=== PATIENT | male | born 1940 ===

== ENCOUNTER 2018-10-31 14:28 | Inpatient (IN) | payer OTHER ==
[2018-10-31] MEDS ORDERED: Sodium Chloride 0.9% 1,000 ML IV STA (14:54)
--- NOTE | 2018-10-31 15:01 | ED PDOC ---
Arrival/HPI - General Chief Complaint: Fever Time Seen by Provider: 10/31/18 14:29 Historian: Patient - History of Present Illness Narrative History of Present Illness (Text): 10/31/18 15:00 78 yo mlae, hx of dm, presents wtih fever, chills, vomiting. as per son bedside, [place] to [place] was noted to be febrile. reports dry cough. no cp, no sob, no abd pain, no other complaints Past Medical History - Provider Review Nursing Documentation Reviewed: Yes - Infectious Disease Hx of Infectious Diseases: None - Cardiac Hx Cardiac Disorders: No - Pulmonary Hx Respiratory Disorders: No - Neurological Hx Dementia: Yes - HEENT Hx Blind: Yes (blind rt eye) - Renal Hx Renal Disorder: No - Endocrine/Metabolic Hx Diabetes Mellitus Type 2: Yes - Hematological/Oncological Hx Blood Disorders: No - Musculoskeletal/Rheumatological Hx Musculoskeletal Disorders: No - Gastrointestinal Hx Colitis: No - Genitourinary/Gynecological Hx Genitourinary Disorders: No - Psychiatric Hx Substance Use: No - Anesthesia Hx Anesthesia: No Family/Social History - Physician Review Nursing Documentation Reviewed: Yes Family/Social History: Unknown Family HX Smoking Status: Unknown If Ever Smoked Hx Alcohol Use: No Hx Substance Use: No Allergies/Home Meds Allergies/Adverse Reactions: Allergies No Known Allergies Allergy (Verified 10/31/18 14:44) Home Medications: Home Meds Medication Instructions Recorded Confirmed MetFORMIN [glucOPHAGE] 0 mg PO BID 10/31/18 10/31/18 Review of Systems - Review of Systems Constitutional: Normal Eyes: Normal ENT: Normal Respiratory: Cough Cardiovascular: Normal Gastrointestinal: Normal Genitourinary Male: Normal Musculoskeletal: Normal Skin: Normal Neurological: Normal Endocrine: Normal Hemo/Lymphatic: Normal Psychiatric: Normal Physical Exam Vital Signs Temp Pulse Resp BP Pulse Ox 10/31/18 14:37 102.6 F H 72 18 144/69 96 Temperature: Febrile Blood Pressure: Normal Pulse: Regular Respiratory Rate: Normal Appearance: Positive for: Well-Appearing, Non-Toxic, Comfortable Pain Distress: None Mental Status: Positive for: Alert and Oriented X 3 - Systems Exam Head: Present: Atraumatic, Normocephalic Pupils: Present: PERRL Extroacular Muscles: Present: EOMI Conjunctiva: Present: Normal Mouth: Present: Moist Mucous Membranes Neck: Present: Normal Range of Motion Respiratory/Chest: Present: Clear to Auscultation, Good Air Exchange. No: Respiratory Distress, Accessory Muscle Use Cardiovascular: Present: Regular Rate and Rhythm, Normal S1, S2. No: Murmurs Abdomen: No: Tenderness, Distention, Peritoneal Signs, Rebound, Guarding Back: Present: Normal Inspection Upper Extremity: Present: Normal Inspection. No: Cyanosis, Edema Lower Extremity: Present: Normal Inspection. No: Edema Neurological: Present: GCS=15, CN II-XII Intact, Speech Normal Skin: Present: Warm, Dry, Normal Color. No: Rashes Psychiatric: Present: Alert, Oriented x 3, Normal Insight, Normal Concentration Medical Decision Making ED Course and Treatment: ro pna influenza 10/31/2018 15:27 Chest X-Ray IMPRESSION: No active disease. Dictator: Igor Miller MD 10/31/18 18:14 influenza positive. pt states feels unwell for discharge. accepted dr ramirez. - RAD Interpretation Radiology Orders: 10/31/18 14:53 CHEST PORTABLE [RAD] Stat - Medication Orders Current Medication Orders: Sodium Chloride (Sodium Chloride 0.9%) 1,000 mls @ 999 mls/hr IV .Q1H1M STA Stop: 10/31/18 15:54 Discontinued Medications Acetaminophen (Tylenol 325mg Tab) 975 mg PO STAT STA Stop: 10/31/18 14:55 Ondansetron HCl (Zofran Inj) 4 mg IVP STAT STA Stop: 10/31/18 14:55 Disposition/Present on Arrival - Present on Arrival Any Indicators Present on Arrival: No History of DVT/PE: No History of Uncontrolled Diabetes: No Urinary Catheter: No History of Decub. Ulcer: No History Surgical Site Infection Following: None - Disposition Have Diagnosis and Disposition been Completed?: Yes Diagnosis: Influenza Disposition: HOSPITALIZED Disposition Time: 17:00 Patient Problems: Current Active Problems Problem Status Onset Influenza Acute Condition: STABLE
--- NOTE | 2018-10-31 15:31 | RAD ---
Date of service: 10/31/2018 HISTORY: fever COMPARISON: No prior. FINDINGS: LUNGS: No active pulmonary disease. PLEURA: No significant pleural effusion identified, no pneumothorax apparent. CARDIOVASCULAR: Aorta atherosclerotic calcifications. Cardiomediastinal silhouette enlarged. OSSEOUS STRUCTURES: Spinal degenerative changes. VISUALIZED UPPER ABDOMEN: Normal. OTHER FINDINGS: None. IMPRESSION: No active disease.
[2018-10-31 15:42] LABS: BASO # 0.03 K/mm3 (0.0-2.0); BASO % 0.3 % (0.0-3.0); EOS % 0.5 % (1.5-5.0); GRAN # 7.73 (1.4-6.5); GRAN % 87.7 % (50.0-68.0); HEMOGLOBIN 11.9 g/dL (14.0-18.0); LYMPH # 0.6 (1.2-3.4); LYMPH % 6.8 % (22.0-35.0); MEAN CELL VOLUME 95.7 fl (80.0-105.0); MEAN CORPUSCULAR HEMOGLOBIN 32.1 pg (25.0-35.0); MEAN CORPUSCULAR HGB CONC 33.5 g/dl (31.0-37.0); MEAN PLATELET VOLUME 9.9 fl (7.0-11.0); MONO # 0.4 (0.1-0.6); MONO % 4.7 % (1.0-6.0); RBC 3.71 10^6/uL (3.5-6.1); RED CELL DISTRIBUTION WIDTH 12.5 % (11.5-14.5); WHITE BLOOD COUNT 8.8 10^3/uL (4.5-11.0)
[2018-10-31 16:07] LABS: VENOUS BLOOD GAS BASE EXCESS 0.8 mmol/L (0.0-2.0); VENOUS BLOOD GAS PO2 33 mm/Hg (30-55); VENOUS BLOOD PH 7.35 (7.32-7.43)
[2018-10-31 16:15] LABS: URINE BILIRUBIN NEGATIVE (NEGATIVE); URINE BLOOD MODERATE (NEGATIVE); URINE GLUCOSE (UA) 100 mg/dL (NEGATIVE); URINE LEUKOCYTE ESTERASE NEGATIVE Leu/uL (NEGATIVE); URINE PROTEIN TRACE mg/dL (<30 mg/dL); URINE UROBILINOGEN 0.2 E.U./dL (<1 E.U./dL)
[2018-10-31 16:17] LABS: INR 1.23; PARTIAL THROMBOPLASTIN TIME 27.3 Seconds (25.1-36.5); PROTHROMBIN TIME 14.1 SECONDS (9.4-12.5)
[2018-10-31 16:18] LABS: URINE APPEARANCE CLEAR (CLEAR)
[2018-10-31 16:22] LABS: URINE RBC 20 - 25 /hpf (0-2)
[2018-10-31 16:36] LABS: ALB/GLOB RATIO 1.2 (1.1-1.8); ALBUMIN 4.1 g/dL (3.0-4.8); AST/SGOT 47 U/L (17-59); BLOOD UREA NITROGEN 13 mg/dL (7-21); CALCIUM 9.4 mg/dL (8.4-10.5); GFR NON-AFRICAN AMERICAN 58
[2018-10-31 16:37] LABS: ALT/SGPT 34 U/L (7-56); TROPONIN I < 0.01 ng/mL
[2018-10-31 22:33] VITALS: BMI 23.3
[2018-10-31] MEDS ORDERED: Pneumococcal 23-Valent Vaccine IM ONE (22:33)
[2018-10-31] MEDS ORDERED: Influenza Vaccine 60 mcg/0.5 mL SYR (4YR UP) IM ONE (22:33)
[2018-10-31] MEDS: Sodium Chloride 0.9% 1,000 ML IV SCH (22:43)
[2018-11-01 06:56] LABS: ALB/GLOB RATIO 1.1 (1.1-1.8); ALBUMIN 3.9 g/dL (3.0-4.8); ALT/SGPT 58 U/L (7-56); AST/SGOT 67 U/L (17-59); BLOOD UREA NITROGEN 16 mg/dL (7-21); CALCIUM 8.9 mg/dL (8.4-10.5); GFR NON-AFRICAN AMERICAN > 60
[2018-11-01 06:59] LABS: BASO # 0.02 K/mm3 (0.0-2.0); BASO % 0.2 % (0.0-3.0); EOS # 0.1 (0.0-0.7); EOS % 0.6 % (1.5-5.0); GRAN # 9.4 (1.4-6.5); GRAN % 87.1 % (50.0-68.0); HEMOGLOBIN 11.4 g/dL (14.0-18.0); LYMPH # 0.9 (1.2-3.4); LYMPH % 8.1 % (22.0-35.0); MEAN CELL VOLUME 96.1 fl (80.0-105.0); MEAN CORPUSCULAR HEMOGLOBIN 31.8 pg (25.0-35.0); MONO # 0.4 (0.1-0.6); RBC 3.59 10^6/uL (3.5-6.1); RED CELL DISTRIBUTION WIDTH 12.7 % (11.5-14.5); WHITE BLOOD COUNT 10.8 10^3/uL (4.5-11.0)
[2018-11-01] MEDS: Insulin Reg-LOW-Coverage SC SCH ×2 (09:06→16:37)
[2018-11-01] MEDS: Sodium Chloride 0.9% 1,000 ML IV SCH ×2 (09:07→18:05)
--- NOTE | 2018-11-01 14:42 | CON ---
DATE OF CONSULTATION: 11/01/2018 CHIEF COMPLAINT: Fever times several days. HISTORY OF PRESENT ILLNESS: This is an 78-year-old male with a history of diabetes mellitus and right eye blindness, who just returned from [place] where he had a fever upon entering the plane. The patient's in [place] has influenza. He is admitted with cough. No shortness of breath. No abdominal pain. No diarrhea or constipation. No bright red blood per rectum. No melena. No dysuria or frequency. PAST MEDICAL HISTORY: Significant for diabetes mellitus, right eye blindness, mild dementia and skin cancer. PAST SURGICAL HISTORY: Significant for skin cancer removal from his nose and a right arm surgery from a fracture, which has screws in it. The patient also had inguinal hernia repair, bilateral. SOCIAL HISTORY: Recent travel to [place]. His has influenza. MEDICATIONS AT HOME: Metformin. ALLERGIES: THE PATIENT HAS NO KNOWN ALLERGIES. PHYSICAL EXAMINATION: VITAL SIGNS: Temperature is 102.6; heart rate is 72, it was 66; respiratory rate of 18, was up to 20; blood pressure is 129/50. HEENT: Unremarkable. NECK: Supple. LUNGS: Decreased breath sounds. HEART: Normal S1, S2. ABDOMEN: Soft, nontender. LABORATORY EXAMINATION: White count of 8.8, hemoglobin of 11.9, platelets of 215,000. Coagulation is noted. Chemistries reveal a BUN of 13, creatinine of 1.2. Random glucose is 157. Urinalysis is noted, 2-5 wbc's. Influenza A is positive. Microbiology is pending. The patient had a chest x-ray, which is negative. Review of orders reveals the patient is on Tamiflu. Blood cultures are ordered. ASSESSMENT/PLAN: This is an 78-year-old male with diabetes and who has #1 is fever with influenza A. Treat with Tamiflu x5 days. Check on the culture results and we will make further recommendations. Sheng Verdugo MD
--- NOTE | 2018-11-01 19:59 | CARD ---
APPROVED REPORT Date of service: 10/31/2018 EKG Measurement Heart [id number] <Conclusion> Normal sinus rhythm Incomplete RBBB Borderline ECG
--- NOTE | 2018-11-01 22:18 | HP ---
DATE OF EXAM: 11/01/2018 HISTORY OF PRESENT ILLNESS: This is an 78-year-old male who is coming into the hospital complaining of fever, chills. He was having vomiting. The patient had come from [place] to visit because his brother had , the patient's has flu. He had complaints of a dry cough. He was found to have a positive flu in the ER and was admitted to the hospital for further evaluation. He denies any chest pain or shortness of breath. No abdominal pain or back pain. No dysuria or frequency. No nocturia. No weakness in the arms or the legs. ALLERGIES: HE HAS NO KNOWN DRUG ALLERGIES. HOME MEDICATIONS: Metformin. FAMILY HISTORY: His mother and father had MIs and that is how they passed. SOCIAL HISTORY He denies smoking, drinking alcohol. REVIEW OF SYSTEMS: All other review of symptoms are within normal limits except as mentioned. PHYSICAL EXAMINATION: VITAL SIGNS: T-max of 102.5, pulse of 72, blood pressure 129/59, respiration is 20, O2 saturation 95%. Height is 5 feet 7 inches, weight is 149 pounds. BMI is 23.3. GENERAL: The patient lying in bed, uncomfortable, and in no acute distress. HEENT: Atraumatic and normocephalic. Anicteric sclerae. Moist mucosa. [place] conjunctivae. No oral lesions. NECK: No JVD, anterior and posterior adenopathy, thyromegaly, or bruits. CARDIOVASCULAR: S1 and S2 regular. No murmur, rubs, or gallop. LUNGS: Clear to auscultation bilaterally. No wheezes, rales, or rhonchi. ABDOMEN: Bowel sounds are positive. Soft, nontender and nondistended. No hepatosplenomegaly. No rebound and no guarding EXTREMITIES: No cyanosis, clubbing, or edema. NEUROLOGIC: No facial asymmetry. Tongue is midline. No vulva deviation. Power is 5/5 upper extremity and lower extremity. Sensation intact in upper extremity and lower extremity. PSYCHIATRIC: He is awake, alert and oriented x3. No anxiety or depression. He has normal affect. GENITOURINARY: No CVA tenderness. VASCULAR: 2+ pulses in the carotid pulses and pedal pulses. SKIN: No erythema or nodules SPINE: Shows normal curvature. LABORATORY DATA: White count of 8.8, hemoglobin 11.9. INR is 1.2. He has a chemistry that shows a sodium of 136, creatinine is 1.2, magnesium 1.6. AST and ALT of 47 and 34. Albumin is 4.1. Troponin is 0.01. Urine shows blood that is moderate, nitrites are negative, bilirubin is negative. RBCs is 20 to 25. He is having influenza that is positive. The patient has a chest x-ray that shows no active disease. EKG done shows sinus rhythm at 69. QTc is 413. No ST-T changes. ASSESSMENT: 1. Influenza infection. 2. Diabetes type 2. PLAN: The patient is admitted to the hospital. The patient is on Tylenol for his fevers. The patient is going to be on Tamiflu, the first doses given in the ER. The patient is going to be on low dose of algorithm for his diabetes. He is going to be on a carbohydrate consistent diet. He is going to be placed on contact isolation. I did speak to Dr. Verdugo from Infectious Disease regarding the case. Blood cultures that have been ordered. Bert Cannon MD
[2018-11-02] MEDS: Insulin Reg-LOW-Coverage SC SCH ×2 (08:35→18:25)
[2018-11-02] MEDS ORDERED: Sodium Chloride 0.9% 1,000 ML IV SCH (11:23)
--- NOTE | 2018-11-02 13:57 | CP.PCM.PN ---
Subjective - Date & Time of Evaluation Date of Evaluation: 11/02/18 Time of Evaluation: 10:55 - Subjective Subjective: Feeling a little better but still feels weak, no fevers. Objective - Vital Signs/Intake and Output Vital Signs (last 24 hours): Temp Pulse Resp BP Pulse Ox 98.3 F 62 21 151/81 H 94 L 11/02/18 08:20 11/02/18 08:20 11/02/18 08:20 11/02/18 08:20 11/02/18 08:20 - Medications Medications: Current Medications Acetaminophen (Tylenol 325mg Tab) 650 mg PO Q4H PRN PRN Reason: Fever >100.4 F Last Admin: 11/01/18 09:07 Dose: 650 mg Benzonatate (Tessalon Perles) 100 mg PO Q8 SONIA Last Admin: 11/02/18 13:01 Dose: 100 mg Sodium Chloride (Sodium Chloride 0.9%) 1,000 mls @ 50 mls/hr IV .Q20H SONIA Insulin Human Regular (Humulin R Low) 0 units SC ACBD SONIA; Protocol Last Admin: 11/02/18 08:35 Dose: 1 unit Oseltamivir Phosphate (Tamiflu Cap) 75 mg PO BID SONIA; Protocol Stop: 11/06/18 07:27 Last Admin: 11/02/18 10:50 Dose: 75 mg - Labs Labs: 11/01/18 05:30 11/01/18 05:30 PT 14.1 SECONDS (9.4-12.5) H 10/31/18 16:10 INR 1.23 10/31/18 16:10 APTT 27.3 Seconds (25.1-36.5) 10/31/18 16:10 - Constitutional Appears: No Acute Distress, Chronically Ill - Head Exam Head Exam: NORMAL INSPECTION - Neck Exam Neck Exam: absent: Meningismus - Respiratory Exam Respiratory Exam: Decreased Breath Sounds - Cardiovascular Exam Cardiovascular Exam: +S1, +S2 - GI/Abdominal Exam GI & Abdominal Exam: Soft. absent: Tenderness Assessment and Plan - Assessment and Plan (Free Text) Plan: Assessment Influenza A infection DM history of right nose cancer S/P excision right eye blindness history of right arm fracture S/P screws placed Plan continue Tamiflu day 2 to complete 5 days of therapy discussed with Dr. Borrero
[2018-11-02 16:32] VITALS: PULSE 65; RESP 20
--- NOTE | 2018-11-02 21:44 | PN ---
DATE: 11/02/2018 SUBJECTIVE: Patient is an 78-year-old seen and examined. Patient is visiting his family from [place]. He came in for for brother. He got sick. His is sick in [place]. Still complaining of feeling weak, tired, no energy, no appetite. PHYSICAL EXAMINATION: VITAL SIGNS: Patient is afebrile. Pulse 62, respirations 21, blood pressure 151/81. LUNGS: Bilateral fair airflow. No rhonchi or crackles. HEART: S1 and S2 audible. ABDOMEN: Soft. Nontender. No rebound. No guarding. NEUROLOGIC: Patient is awake, alert, oriented, and communicative. LABORATORY DATA: His blood sugar is 163. Flu test is positive. Blood cultures are negative. Chest x-ray is unremarkable. ASSESSMENT: 1. Generalized weakness. 2. Viral syndrome. 3. Insulin dependent diabetes. 4. Abnormal liver function test. PLAN: I will reduce patient's IV fluids, watching for another 24 hours. If patient remained stable and oral intake is fair, he will be discharged home in a.m. Alba Borrero MD
[2018-11-03 07:04] VITALS: BP 147/79; TEMP 98; O2SAT 100
[2018-11-03] MEDS: Insulin Reg-LOW-Coverage SC SCH (07:30)
--- NOTE | 2018-11-03 13:03 | PN ---
DATE: 11/03/2018 SUBJECTIVE: The patient is in bed, in no acute distress, nontoxic. OBJECTIVE: VITAL SIGNS: Temperature is 98, blood pressure is 147/70, respiratory rate of 20, heart rate of 62. HEENT: Unremarkable. NECK: Supple. LUNGS: Have decreased breath sounds. HEART: Normal S1, S2. ABDOMEN: Soft. LABORATORY EXAMINATION: Reveals a white count of 10,000, hemoglobin of 11, platelets of 194. Coagulation is noted and the chemistries reveals the patient has BUN of 16, creatinine of 1.1. Urinalysis is noted. Influenza is positive. Microbiology reveals the blood cultures are negative, and the patient's chest x-ray is reported to be negative. ASSESSMENT/PLAN: This is an 78-year-old male admitted with fever. Temperatures responded. Last temperature was on the 11/01, was 102. The patient is currently only on Tamiflu. The patient did have respiratory rate of 21 which is improved #1 is sepsis secondary to influenza, fevers responded currently on Tamiflu day #3 in a patient with diabetes and complete 5 days of Tamiflu. May be discharged from Infectious Disease point of view, on Tamiflu to complete 5 days. Today is day #3 of 5 days. Sheng Verdugo MD
--- NOTE | 2018-11-03 13:13 | DS ---
HISTORY OF PRESENT ILLNESS: This is an 78-year-old male who had come into the hospital with flu-like symptoms. He was found to have positive for flu. He was admitted to the hospital. He was started on Tamiflu, given IV fluids. He says he is feeling better this morning. The patient had blood cultures which were negative. He feels well. He is able to ambulate. He is going to be discharged home today. Has no complaint of any chest pain or shortness of breath. No headaches, no dizziness. PHYSICAL EXAMINATION: VITAL SIGNS: Temperature is 98, pulse of 65, blood pressure 147/79, respirations 20, O2 saturation 100%. ASSESSMENT: 1. Influenza infection. 2. Diabetes type 2. PLAN: The patient is on Tamiflu. This will be continued. I wrote a prescription for him. He is on Tessalon Perles. He is on Tylenol for pain. He is on carbohydrate consistent diet. CONDITION: Stable. ACTIVITIES: 1. Increase as tolerated. Follow up with primary care doctor in 1-2 weeks. 2. Discharged on Tamiflu 75 mg twice daily for 3 more days. Bert Cannon MD
== END 2018-11-03 15:23 | disposition home or self-care (01) | DRG 195 ==
LOC: ED 14:28 → ERH 16:48 → 3RNO 19:03 → OBSVTOIN 11-01 11:56
PROVIDERS: ADMIT Internal Medicine; ATTEND Internal Medicine
DX: J10.1 Influenza due to other identified influenza virus with other respiratory manifestations (principal); E11.9 Type 2 diabetes mellitus without complications; F03.90 Unspecified dementia, unspecified severity, without behavioral disturbance, psychotic disturbance, mood disturbance, and anxiety; H54.61 Unqualified visual loss, right eye, normal vision left eye; R94.5 Abnormal results of liver function studies; R53.1 Weakness; Z79.4 Long term (current) use of insulin; Z85.828 Personal history of other malignant neoplasm of skin; Z87.81 Personal history of (healed) traumatic fracture